=== PATIENT | male | born 1945 | race Caucasian/White ===

== ENCOUNTER → 2016-03-31 | Outpatient (CLI) | payer MEDICARE ==
--- NOTE | 2016-04-01 08:26 | XR ---
Cervical spine HISTORY: Neck pain 5 views of the cervical spine No comparisons Surgical clips present at the level of the thoracic inlet on the right. Multilevel facet arthropathy changes present. There is no significant foraminal encroachment. Anterolisthesis grade 1 C3-4, C4-5, there is multilevel spondylosis, loss of disc height present at C5-6, C6-7. Prevertebral soft tissues are normal. IMPRESSION: Degenerative disc disease and facet arthropathy.
== END | disposition home or self-care (01) ==
LOC: RADXRYALE 10:53
PROVIDERS: ATTEND Nurse Practitioner Family
DX: M50.30 Other cervical disc degeneration, unspecified cervical region (principal); M46.92 Unspecified inflammatory spondylopathy, cervical region
CPT/HCPCS: 72050

== ENCOUNTER → 2016-04-17 | Outpatient (CLI) | payer MEDICARE ==
--- NOTE | 2016-04-17 14:59 | MR ---
EXAMINATION TYPE: MR cervical spine wo con DATE OF EXAM ORDERED: 04/17/2016 2:01 PM HISTORY: M542 cervicalgia. TECHNOLOGIST HISTORY AT TIME OF EXAM: Cervicalgia COMPARISON: None. TECHNIQUE: Multiplanar, multiecho imaging of the cervical spine was obtained without contrast on a 1 .5 fadi magnet. FINDINGS: Prevertebral soft tissues are normal. Vertebral body height and alignment are maintained. Atlantoaxial relationships are normal. There is a normal craniocervical junction. Cord signal is normal. At C2-C3, no definite abnormality is seen. At C3-C4, there is a diffuse disc displacement. There is some right-sided intervertebral foraminal na rrowing. There is mild facet arthropathy. The uncovertebral joints are normal. At C4-C5, the intervertebral foramina are well maintained. There is a mild, diffuse disc displacement . There is mild hypertrophic spondylosis present anteriorly. There is mild degenerative changes in th e facets. The uncovertebral joints are unremarkable. At C5-C6, there is mild disc space loss. There is a diffuse disc displacement. There is mild, right-s ided intervertebral foraminal narrowing. There is some mild facet arthropathy. The uncovertebral join ts are normal. At C6-C7, there is disc space loss. There is a small, broad-based disc protrusion posteriorly effacin g the thecal sac without cord contact. The intervertebral foramina are well maintained. At C7-T1, no definite abnormality is seen. IMPRESSION: 1. DEGENERATIVE DISC DISEASE EXTENDING FROM C3-4 THROUGH TO C5-6. 2. SMALL, BROAD-BASED DISC PROTRUSION, C6-7, DEFORMING THE THECAL SAC WITHOUT CORD CONTACT. 3. MULTILEVEL INTERVERTEBRAL FORAMINAL NARROWING.
== END | disposition home or self-care (01) ==
LOC: RADMRIMAIN 13:09
PROVIDERS: ATTEND Nurse Practitioner
DX: M99.71 Connective tissue and disc stenosis of intervertebral foramina of cervical region (principal); M50.223 Other cervical disc displacement at C6-C7 level; M50.31 Other cervical disc degeneration, high cervical region
CPT/HCPCS: 72141

== ENCOUNTER → 2016-12-17 | Outpatient (CLI) | payer MEDICARE ==
--- NOTE | 2016-12-17 12:26 | ECHOS ---
STRESS ECHOCARDIOGRAM DATE OF SERVICE: 12/17/16 INDICATION: Chest pain. MEDICATIONS:: Dulera, Omeprazole BASELINE HEART RATE: 68 BASELINE BLOOD PRESSURE: 128/65 MAXIMUM HEART RATE: 153 MAXIMUM BLOOD PRESSURE: 201/80 85% MPHR: 126 100% MPHR: 148 METS: 8.5 mets MAXIMUM STAGE REACHED: III TOTAL EXERCISE TIME: 7 minutes. RESULTS: Baseline EKG shows sinus rhythm, normal axis, normal intervals, with poor R-wave progression. Patient exercised on Varun protocol for a total of 7 minutes achieving 8 METS. 100% of predicted maximal heart rate without chest pain or diagnostic ST-segment depression. Baseline echo shows normal left ventricular size, wall motion and systolic function. Post exercise there is normal hyperdynamic response of all segments of myocardium noted. CONCLUSIONS: 1. Average exercise tolerance. 2. Negative stress test by EKG criteria. 3. Negative stress echo. ANGIE / DESIREE: [id number] /
== END | disposition home or self-care (01) ==
LOC: RADNMMAIN 09:29
PROVIDERS: ATTEND Nurse Practitioner
DX: R07.89 Other chest pain (principal)
CPT/HCPCS: 93017; 93350

== ENCOUNTER 2020-02-03 16:25 | Emergency (ER) | payer MEDICARE ==
[2020-02-03 16:36] VITALS: RESP 18; TEMP 98
--- NOTE | 2020-02-03 17:46 | ED ---
General Adult HPI - General Chief complaint: Chest Pain Stated complaint: Chest tightness, +Covid Time Seen by Provider: 02/03/20 16:51 Source: patient Mode of arrival: ambulatory Limitations: no limitations - History of Present Illness Initial comments: Dictation was produced using [employer] dictation software. please excuse any grammatical, word or spelling errors. This patient was cared for during a federal and state declared state of emergency secondary to Covid 19 Chief Complaint: 6-year-old male presents with chest pain History of Present Illness: 74-year-old male presents today with chest pain. Patient states is worse when he coughs and takes a deep breath. Patient was diagnosed: Approximately 11 days ago. He denies any shortness of breath. He does have a cough as productive of white sputum. Reports he has a history of COPD and sees a brownfield redevelopment specialist. Patient denies any constitutional symptoms or fevers. The ROS documented in this emergency department record has been reviewed and confirmed by me. Those systems with pertinent positive or negative responses have been documented in the HPI. All other systems are other negative and/or noncontributory. PHYSICAL EXAM: General Impression: Alert and oriented x3, not in acute distress HEENT: Normocephalic atraumatic, extra-ocular movements intact, pupils equal and reactive to light bilaterally, mucous membranes moist. Cardiovascular: Heart regular rate and rhythm Chest: Able to complete full sentences, no retractions, no tachypnea Abdomen: abdomen soft, non-tender, non-distended, no organomegaly Musculoskeletal: Pulses present and equal in all extremities, no peripheral edema Motor: no focal deficits noted Neurological: CN II-XII grossly intact, no focal motor or sensory deficits noted Skin: Intact with no visualized rashes Psych: Normal affect and mood ED course: 74-year-old male who is Covid positive presents today with chest pain. His pain is atypical. As upon arrival are within acceptable limits. Patient hypoxic or tachycardic. Bedside he is well-appearing. Laboratory evaluation obtained. CBC is unremarkable. Coag panel is negative. D-dimer slightly elevated 0.89. Metabolic panel is unremarkable. CRP is 62.7. Chest x-ray shows peripheral pulmonary interstitial infiltrates concerning for fibrosis versus pneumonia. This point clinical presentation consistent with: 19. He is reevaluated at bedside approximately 6:50 PM and found to be in stable medical condition. He is not showing signs of respiratory distress. Patient clear for discharge is given Coumadin 19 precautions. Patient is agreeable with disposition. Return parameters discussed. EKG interpretation: Ventricular rate 70, sinus rhythm,. Interval to 26, QRS 80, QTC 429. No OK prolongation, no QTC prolongation, no ST or T-wave changes noted. No old EKG for comparison. Overall, this EKG is unremarkable. Repeat EKG was performed shortly after showed no dynamic changes. Ventricular rate 55,. Interval to 22, QRS 82, QTc 380. - Related Data Home Medications Medication Instructions Recorded Confirmed Albuterol Sulfate [Proair Hfa] 1 puff INHALATION DIRECTED PRN 02/06/16 02/06/16 Mometasone/Formoterol [Dulera 100 2 puff INHALATION BID 02/06/16 02/06/16 Mcg/5 Mcg Inhaler] Multivitamins, Thera [Multivitamin] 1 tab PO DAILY 02/06/16 02/06/16 [place]-3 Fatty Acids/Fish Oil [Fish 1 cap PO DAILY 02/06/16 02/06/16 Oil 1,000 mg Softgel] Allergies Allergy/AdvReac Type Severity Reaction Status Date / Time Penicillins Allergy Unknown Verified 02/03/20 16:33 Review of Systems ROS Statement: Those systems with pertinent positive or pertinent negative responses have been documented in the HPI. ROS Other: All systems not noted in ROS Statement are negative. Past Medical History Past Medical History: COPD Additional Past Medical History / Comment(s): SOB. PERIODIC IRREGULAR HEARTBEAT. History of Any Multi-Drug Resistant Organisms: None Reported Past Surgical History: Appendectomy, Cholecystectomy Additional Past Surgical History / Comment(s): UPPER RIGHT LOBECTOMY (BLEBS) 1979. BILATERAL CATARACTS WITH LENS Past Anesthesia/Blood Transfusion Reactions: No Reported Reaction Past Psychological History: No Psychological Hx Reported Smoking Status: Former smoker Past Alcohol Use History: None Reported Past Drug Use History: None Reported General Exam Limitations: no limitations Course Vital Signs 02/03/20 02/03/20 02/03/20 16:33 17:25 17:31 Temperature 98 F Pulse Rate 79 Pulse Rate [ 72 Life Skills Coordinator Volunteer ] Respiratory 18 18 Rate Blood Pressure 108/67 O2 Sat by Pulse 98 Oximetry 02/03/20 18:14 Temperature Pulse Rate 68 Pulse Rate [ Life Skills Coordinator Volunteer ] Respiratory 18 Rate Blood Pressure 101/66 O2 Sat by Pulse 95 Oximetry Medical Decision Making - Lab Data Result diagrams: 02/03/20 17:06 02/03/20 17:06 Lab Results 02/03/20 02/03/20 02/03/20 Range/Units 17:06 17:06 17:06 WBC 10.2 (3.8-10.6) k/uL RBC 5.41 (4.30-5.90) m/uL Hgb 16.9 (13.0-17.5) gm/dL Hct 49.7 (39.0-53.0) % MCV 91.9 (80.0-100.0) fL MCH 31.2 (25.0-35.0) pg MCHC 34.0 (31.0-37.0) g/dL RDW 12.4 (11.5-15.5) % Plt Count 182 (150-450) k/uL MPV 8.1 Neutrophils % 83 % Lymphocytes % 11 % Monocytes % 4 % Eosinophils % 1 % Basophils % 2 % Neutrophils # 8.4 H (1.3-7.7) k/uL Lymphocytes # 1.1 (1.0-4.8) k/uL Monocytes # 0.4 (0-1.0) k/uL Eosinophils # 0.1 (0-0.7) k/uL Basophils # 0.2 (0-0.2) k/uL PT 10.0 (9.0-12.0) sec INR 1.0 (<1.2) APTT 23.1 (22.0-30.0) sec D-Dimer 0.89 H (<0.60) mg/L FEU Sodium 136 L (137-145) mmol/L Potassium 4.1 (3.5-5.1) mmol/L Chloride 101 (98-107) mmol/L Carbon Dioxide 27 (22-30) mmol/L Anion Gap 8 mmol/L BUN 23 H (9-20) mg/dL Creatinine 1.04 (0.66-1.25) mg/dL Est GFR (CKD-EPI)AfAm 81 (>60 ml/min/1.73 sqM) Est GFR (CKD-EPI)NonAf 70 (>60 ml/min/1.73 sqM) Glucose 106 H (74-99) mg/dL Plasma Lactic Acid Jaime (0.7-2.0) mmol/L Calcium 8.6 (8.4-10.2) mg/dL Magnesium 2.3 (1.6-2.3) mg/dL Total Bilirubin 0.8 (0.2-1.3) mg/dL AST 33 (17-59) U/L ALT 42 (4-49) U/L Alkaline Phosphatase 74 (38-126) U/L Lactate Dehydrogenase 592 (313-618) U/L C-Reactive Protein 62.7 H (<10.0) mg/L Total Protein 6.7 (6.3-8.2) g/dL Albumin 3.5 (3.5-5.0) g/dL 02/03/20 Range/Units 17:06 WBC (3.8-10.6) k/uL RBC (4.30-5.90) m/uL Hgb (13.0-17.5) gm/dL Hct (39.0-53.0) % MCV (80.0-100.0) fL MCH (25.0-35.0) pg MCHC (31.0-37.0) g/dL RDW (11.5-15.5) % Plt Count (150-450) k/uL MPV Neutrophils % % Lymphocytes % % Monocytes % % Eosinophils % % Basophils % % Neutrophils # (1.3-7.7) k/uL Lymphocytes # (1.0-4.8) k/uL Monocytes # (0-1.0) k/uL Eosinophils # (0-0.7) k/uL Basophils # (0-0.2) k/uL PT (9.0-12.0) sec INR (<1.2) APTT (22.0-30.0) sec D-Dimer (<0.60) mg/L FEU Sodium (137-145) mmol/L Potassium (3.5-5.1) mmol/L Chloride (98-107) mmol/L Carbon Dioxide (22-30) mmol/L Anion Gap mmol/L BUN (9-20) mg/dL Creatinine (0.66-1.25) mg/dL Est GFR (CKD-EPI)AfAm (>60 ml/min/1.73 sqM) Est GFR (CKD-EPI)NonAf (>60 ml/min/1.73 sqM) Glucose (74-99) mg/dL Plasma Lactic Acid Jaime 0.9 (0.7-2.0) mmol/L Calcium (8.4-10.2) mg/dL Magnesium (1.6-2.3) mg/dL Total Bilirubin (0.2-1.3) mg/dL AST (17-59) U/L ALT (4-49) U/L Alkaline Phosphatase (38-126) U/L Lactate Dehydrogenase (313-618) U/L C-Reactive Protein (<10.0) mg/L Total Protein (6.3-8.2) g/dL Albumin (3.5-5.0) g/dL Disposition Clinical Impression: Pleurisy, COVID-19 Disposition: HOME SELF-CARE Condition: Good Instructions (If sedation given, give patient instructions): Chest Pain (ED), Viral Pneumonia (ED) Additional Instructions: Today you were evaluated for symptoms consistent with upper respiratory infection. There is concern that perhaps your symptomatology may represent Covid 19. Your are stable for discharge, however it is instructed to to seek immediate medical attention especially if you develop worsening symptoms especially respiratory distress. In the meantime please remain in quarantine for 14 days. For any other questions please contact [facility] for here in emergency department or [facility] at [phone] Is patient prescribed a controlled substance at d/c from ED?: No Referrals: Leonor Alexander DO [Primary Care Provider] - 1-2 days Time of Disposition: 19:19
[2020-02-03 17:48] LABS: Basophils # (A) 0.2 k/uL (0-0.2); Basophils % (A) 2 %; Eosinophils # (A) 0.1 k/uL (0-0.7); Eosinophils % (A) 1 %; HCT 49.7 % (39.0-53.0); HGB 16.9 gm/dL (13.0-17.5); Lymphocytes # (A) 1.1 k/uL (1.0-4.8); Lymphocytes % (A) 11 %; MCH 31.2 pg (25.0-35.0); MCV 91.9 fL (80.0-100.0); Mean Platelet Volume 8.1; Monocytes # (A) 0.4 k/uL (0-1.0); Monocytes % (A) 4 %; Neutrophils # (A) 8.4 k/uL (1.3-7.7); Neutrophils % (A) 83 %; Platelet Count 182 k/uL (150-450); RBC 5.41 m/uL (4.30-5.90); RDW 12.4 % (11.5-15.5); WBC 10.2 k/uL (3.8-10.6)
--- NOTE | 2020-02-03 17:53 | XR ---
EXAMINATION TYPE: XR chest 1V portable DATE OF EXAM: 02/03/2020 COMPARISON: 08/10/2017 HISTORY: Short of breath TECHNIQUE: FINDINGS: There is coarse interstitial density in the lungs. Heart size is normal. There is no defini te pleural effusion. There are no hilar masses. There is mild pleural thickening at the right lung ap ex. 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 There is increasing peripheral pulmonary interstitial infiltrates that is more consistent with fibrosis. Supe rimposed pneumonia also possible.
[2020-02-03 17:57] LABS: Albumin 3.5 g/dL (3.5-5.0); C Reactive Protein 62.7 mg/L (<10.0); Calcium 8.6 mg/dL (8.4-10.2); Magnesium 2.3 mg/dL (1.6-2.3); Potassium 4.1 mmol/L (3.5-5.1); Total Bilirubin 0.8 mg/dL (0.2-1.3); Total Protein 6.7 g/dL (6.3-8.2)
[2020-02-03] MEDS ORDERED: DEXAMETHASONE SOD PHOSPHATE 10 MG/ML 1 ML VIAL IV STA (18:02)
[2020-02-03 18:03] LABS: Partial Thromboplastin Time 23.1 sec (22.0-30.0)
[2020-02-03 18:44] LABS: D-Dimer 0.89 mg/L FEU (<0.60)
[2020-02-03 19:51] VITALS: BP 111/73; PULSE 71
[2020-02-03 23:27] LABS: Ferritin 1712.8 ng/mL (22.0-322.0)
== END 2020-02-03 19:51 | disposition home or self-care (01) ==
LOC: EC 16:25
DX: U07.1 COVID-19 (principal); R09.1 Pleurisy; R91.8 Other nonspecific abnormal finding of lung field; J44.9 Chronic obstructive pulmonary disease, unspecified; Z79.51 Long term (current) use of inhaled steroids; Z88.0 Allergy status to penicillin; Z87.891 Personal history of nicotine dependence
CPT/HCPCS: 36415; 93005; 85379; 80053; 82728; 83605; 83615; 83735; 85025; 85610; 85730; 86140; 87040; 84145; 71045; 99285; 96374; J1100

== ENCOUNTER 2024-01-13 20:31 | Emergency (ER) | payer MEDICARE ==
[2024-01-13 20:34] VITALS: TEMP 97.8
--- NOTE | 2024-01-13 21:09 | ED ---
Recheck HPI - General Chief Complaint: Recheck/Abnormal Lab/Rx Stated Complaint: abn labs Time Seen by Provider: 01/13/24 20:50 Source: patient, RN notes reviewed Mode of arrival: wheelchair Limitations: no limitations - History of Present Illness Initial Comments: 78-year-old male presenting to the ER with chief complaint of hypertension. Patient states he has been checking his blood pressure at home and it has been in the 200s over 110s. Patient also states he feels like his "joints in his hands are stiff" and he is "hot behind the eyes". States he is concerned because he accidentally bumped his head while walking towards a beam 1 week ago and has had lightheadedness since. Denies chest pain, vision changes, fever, chills, cough. Denies history of hypertension. Denies blood thinners. History of COPD, denies other health conditions. - Related Data Home Medications Medication Instructions Recorded Confirmed Albuterol Sulfate [Proair Hfa] 1 puff INHALATION DIRECTED PRN 02/06/16 02/06/16 Mometasone/Formoterol [Dulera 100 2 puff INHALATION BID 02/06/16 02/06/16 Mcg/5 Mcg Inhaler] Multivitamins, Thera [Multivitamin] 1 tab PO DAILY 02/06/16 02/06/16 [place]-3 Fatty Acids/Fish Oil [Fish 1 cap PO DAILY 02/06/16 02/06/16 Oil 1,000 mg Softgel] Allergies Allergy/AdvReac Type Severity Reaction Status Date / Time Penicillins Allergy Unknown Verified 01/13/24 20:34 Review of Systems ROS Statement: Those systems with pertinent positive or pertinent negative responses have been documented in the HPI. ROS Other: All systems not noted in ROS Statement are negative. Past Medical History Past Medical History: COPD Additional Past Medical History / Comment(s): SOB. PERIODIC IRREGULAR HEARTBEAT. History of Any Multi-Drug Resistant Organisms: None Reported Past Surgical History: Appendectomy, Cholecystectomy Additional Past Surgical History / Comment(s): UPPER RIGHT LOBECTOMY (BLEBS) 1979. BILATERAL CATARACTS WITH LENS Past Anesthesia/Blood Transfusion Reactions: No Reported Reaction Past Psychological History: No Psychological Hx Reported Smoking Status: Former smoker Past Alcohol Use History: None Reported Past Drug Use History: None Reported General Exam Limitations: no limitations General appearance: alert, in no apparent distress Head exam: Present: atraumatic, normocephalic, normal inspection Eye exam: Present: normal appearance, PERRL, EOMI. Absent: scleral icterus, conjunctival injection, periorbital swelling ENT exam: Present: normal exam, mucous membranes moist Respiratory exam: Present: normal lung sounds bilaterally. Absent: respiratory distress, wheezes, rales, rhonchi, stridor Cardiovascular Exam: Present: regular rate, normal rhythm, normal heart sounds. Absent: systolic murmur, diastolic murmur, rubs, gallop, clicks GI/Abdominal exam: Present: soft, normal bowel sounds. Absent: distended, tenderness, guarding, rebound, rigid Neurological exam: Present: alert, oriented X3, CN II-XII intact Psychiatric exam: Present: normal affect, normal mood Skin exam: Present: warm, dry, intact, normal color. Absent: rash Course Vital Signs 01/13/24 01/13/24 01/13/24 20:33 21:21 22:18 Temperature 97.8 F Pulse Rate 71 71 72 Respiratory 18 16 16 Rate Blood Pressure 178/83 155/82 152/72 O2 Sat by Pulse 97 Oximetry 01/13/24 23:41 Temperature Pulse Rate 67 Respiratory 16 Rate Blood Pressure 158/81 O2 Sat by Pulse 96 Oximetry Medical Decision Making - Medical Decision Making Was pt. sent in by a medical professional or institution ([facility], MANAGER BATTER[employer], urgent care, hospital, or fdc...) When possible be specific @ -No Did you speak to anyone other than the patient for history (EMS, parent, family, police, friend...)? What history was obtained from this source @ -No Did you review nursing and triage notes (agree or disagree)? Why? @ -I reviewed and agree with nursing and triage notes Were old charts reviewed (outside hosp., previous admission, EMS record, old EKG, old radiological studies, urgent care reports/EKG's, fdc records)? Report findings @ -No old charts were reviewed Differential Diagnosis (chest pain, altered mental status, abdominal pain women, abdominal pain men, vaginal bleeding, weakness, fever, dyspnea, syncope, headache, dizziness, GI bleed, back pain, seizure, CVA, palpatations, mental health, musculoskeletal)? @ -Hypertension, ACS, intracranial bleed, concussion, viral URI EKG interpreted by me (3pts min.). @ -As above X-rays interpreted by me (1pt min.). @ -Chest x-ray reveals no acute process CT interpreted by me (1pt min.). @ -CT brain reveals no acute process U/S interpreted by me (1pt. min.). @ -None done What testing was considered but not performed or refused? (CT, X-rays, U/S, labs)? Why? @ -None What meds were considered but not given or refused? Why? @ -None Did you discuss the management of the patient with other professionals (professionals i.e. , PA, MANAGER BATTERY, lab, RT, psych nurse, director of social work, abalone fisherman, teacher, driver license reviewing officer, child welfare caseworker)? Give summary @ -No Was smoking cessation discussed for >3mins.? @ -No Was critical care preformed (if so, how long)? @ -No Were there social determinants of health that impacted care today? How? (Homelessness, low income, unemployed, alcoholism, drug addiction, transportation, low edu. Level, literacy, decrease access to med. care, snf, rehab)? @ -No Was there de-escalation of care discussed even if they declined (Discuss DNR or withdrawal of care, Hospice)? DNR status @ -No What co-morbidities impacted this encounter? (DM, HTN, Smoking, COPD, CAD, Cancer, CVA, ARF, Chemo, Hep., AIDS, mental health diagnosis, sleep apnea, morbid obesity)? @ -None Was patient admitted / discharged? Hospital course, mention meds given and route, prescriptions, significant lab abnormalities, going to OR and other pertinent info. @ -Discharge. This is a 78-year-old male presenting for hypertension. Patient reports blood pressure has been elevated at home monitoring. Patient has never been diagnosed with hypertension, does not take antihypertensive medications. No cardiopulmonary alarm symptoms, however patient reports he did hit his head 1 week ago and has had lightheadedness since then. Initial blood pressure 178/83, heart rate 71 bpm, satting 97% on room air. Lab work including CBC, CMP, troponin unremarkable. EKG reveals normal sinus rhythm with no ST changes. Chest x-ray reveals no acute process. Cepheid negative. CT brain reveals no acute process. Upon reevaluation, blood pressure decreases to 152/72. Negative results discussed with patient. Advise close follow-up with PCP for reevaluation. Strict cardiopulmonary alarm symptoms discussed with patient and he is agreeable to plan. Case was discussed with my ED attending Dr. Guerra. Patient discharged in stable condition. Undiagnosed new problem with uncertain prognosis? @ -No Drug Therapy requiring intensive monitoring for toxicity (Heparin, Nitro, Insulin, Cardizem)? @ -No Were any procedures done? @ -No Diagnosis/symptom? @ -Hypertension Acute, or Chronic, or Acute on Chronic? @ -Acute Uncomplicated (without systemic symptoms) or Complicated (systemic symptoms)? @ -Uncomplicated Side effects of treatment? @ -No Exacerbation, Progression, or Severe Exacerbation? @ -No Poses a threat to life or bodily function? How? (Chest pain, [place], [place], pneumonia, PE, COPD, DKA, ARF, appy, cholecystitis, CVA, Diverticulitis, Homicidal, Suicidal, threat to staff... and all critical care pts) @ -Not at this time - Lab Data Result diagrams: 01/13/24 21:21 01/13/24 21:21 Lab Results 01/13/24 01/13/24 01/13/24 Range/Units 21:21 21:21 21:21 WBC 8.5 (3.8-10.6) k/uL RBC 4.86 (4.30-5.90) m/uL Hgb 15.4 (13.0-17.5) gm/dL Hct 47.0 (39.0-53.0) % MCV 96.6 (80.0-100.0) fL MCH 31.6 (25.0-35.0) pg MCHC 32.7 (31.0-37.0) g/dL RDW 12.9 (11.5-15.5) % Plt Count 209 (150-450) k/uL MPV 8.6 Neutrophils % 60 % Lymphocytes % 28 % Monocytes % 7 % Eosinophils % 2 % Basophils % 1 % Neutrophils # 5.1 (1.3-7.7) k/uL Lymphocytes # 2.4 (1.0-4.8) k/uL Monocytes # 0.6 (0-1.0) k/uL Eosinophils # 0.2 (0-0.7) k/uL Basophils # 0.1 (0-0.2) k/uL Sodium 139 (137-145) mmol/L Potassium 4.2 (3.5-5.1) mmol/L Chloride 106 (98-107) mmol/L Carbon Dioxide 25 (22-30) mmol/L Anion Gap 8 mmol/L BUN 25 H (9-20) mg/dL Creatinine 0.92 (0.66-1.25) mg/dL Est GFR (CKD-EPI)AfAm >90 (>60 ml/min/1.73 sqM) Est GFR (CKD-EPI)NonAf 79 (>60 ml/min/1.73 sqM) Glucose 138 H (74-99) mg/dL Calcium 9.3 (8.4-10.2) mg/dL Total Bilirubin 0.5 (0.2-1.3) mg/dL AST 25 (17-59) U/L ALT 23 (4-49) U/L Alkaline Phosphatase 59 (38-126) U/L Troponin I (0.000-0.034) ng/mL Total Protein 6.7 (6.3-8.2) g/dL Albumin 4.1 (3.5-5.0) g/dL Influenza Type A (PCR) Not Detected (Not Detectd) Influenza Type B (PCR) Not Detected (Not Detectd) RSV (PCR) Not Detected (Not Detectd) SARS-CoV-2 (PCR) Not Detected (Not Detectd) 01/13/24 Range/Units 21:21 WBC (3.8-10.6) k/uL RBC (4.30-5.90) m/uL Hgb (13.0-17.5) gm/dL Hct (39.0-53.0) % MCV (80.0-100.0) fL MCH (25.0-35.0) pg MCHC (31.0-37.0) g/dL RDW (11.5-15.5) % Plt Count (150-450) k/uL MPV Neutrophils % % Lymphocytes % % Monocytes % % Eosinophils % % Basophils % % Neutrophils # (1.3-7.7) k/uL Lymphocytes # (1.0-4.8) k/uL Monocytes # (0-1.0) k/uL Eosinophils # (0-0.7) k/uL Basophils # (0-0.2) k/uL Sodium (137-145) mmol/L Potassium (3.5-5.1) mmol/L Chloride (98-107) mmol/L Carbon Dioxide (22-30) mmol/L Anion Gap mmol/L BUN (9-20) mg/dL Creatinine (0.66-1.25) mg/dL Est GFR (CKD-EPI)AfAm (>60 ml/min/1.73 sqM) Est GFR (CKD-EPI)NonAf (>60 ml/min/1.73 sqM) Glucose (74-99) mg/dL Calcium (8.4-10.2) mg/dL Total Bilirubin (0.2-1.3) mg/dL AST (17-59) U/L ALT (4-49) U/L Alkaline Phosphatase (38-126) U/L Troponin I <0.012 (0.000-0.034) ng/mL Total Protein (6.3-8.2) g/dL Albumin (3.5-5.0) g/dL Influenza Type A (PCR) (Not Detectd) Influenza Type B (PCR) (Not Detectd) RSV (PCR) (Not Detectd) SARS-CoV-2 (PCR) (Not Detectd) - EKG Data -: EKG Interpreted by Me EKG Comments: EKG reveals normal sinus rhythm with first-degree AV block. Ventricular rate 73 bpm, NM interval 263, QRS duration 86, QT/QTc 394/420 Disposition Clinical Impression: Hypertension Disposition: HOME SELF-CARE Condition: Stable Instructions (If sedation given, give patient instructions): Hypertension in the Older Adult (ED) Additional Instructions: Follow-up with PCP as discussed. Please return to the Emergency Department if symptoms worsen or any other concerns. Is patient prescribed a controlled substance at d/c from ED?: No Referrals: Leonor Alexander DO [REFERRING] - 1-2 days Time of Disposition: 23:19
[2024-01-13 21:22] VITALS: RESP 16
--- NOTE | 2024-01-13 21:37 | CT ---
EXAMINATION TYPE: CT brain wo con DATE OF EXAM: 01/13/2024 9:33 PM COMPARISON: None. CLINICAL INDICATION: Male, 78 years old with history of head injury, lightheadedness, Patient states HTN. Denies chest pain TECHNIQUE: CT of the brain is performed utilizing 3 mm thick sections through the posterior fossa and 3 mm thick sections through the remaining calvarium. Study is performed within 24 hours of arrival to the hospital. Contrast used: mL of , (none if empty) Oral contrast used: (none if empty) CT DLP: 1154.5 mGycm, Automated exposure control for dose reduction was used. FINDINGS: No abnormal hyperdensity is present to suggest an acute intracranial hemorrhage. No mass lesion is evident. No acute infarcts are evident. Ventricles and sulci are appropriate for the patient age. Paranasal sinuses and mastoid air cells within the [id number] are clear. IMPRESSION: 1. No acute intracranial process. Follow up MRI can be performed as clinically indicated. [facility], , 01/13/2024 9:35 PM
--- NOTE | 2024-01-13 21:40 | XR ---
EXAMINATION TYPE: XR chest 2V DATE OF EXAM: 01/13/2024 9:35 PM COMPARISON: 02/03/2020 CLINICAL INDICATION: Male, 78 years old with history of hypertension, TECHNIQUE: XR chest 2V view(s) obtained. FINDINGS: The heart size is normal. The pulmonary vasculature is normal. The lungs are clear. Stable right apical thickening is present IMPRESSION: 1. No acute pulmonary process. [facility], , 01/13/2024 9:38 PM
[2024-01-13 21:48] LABS: Basophils # (A) 0.1 k/uL (0-0.2); Basophils % (A) 1 %; Eosinophils # (A) 0.2 k/uL (0-0.7); Eosinophils % (A) 2 %; HGB 15.4 gm/dL (13.0-17.5); Lymphocytes # (A) 2.4 k/uL (1.0-4.8); Lymphocytes % (A) 28 %; MCH 31.6 pg (25.0-35.0); MCHC 32.7 g/dL (31.0-37.0); MCV 96.6 fL (80.0-100.0); Mean Platelet Volume 8.6; Monocytes # (A) 0.6 k/uL (0-1.0); Monocytes % (A) 7 %; Neutrophils # (A) 5.1 k/uL (1.3-7.7); Neutrophils % (A) 60 %; Platelet Count 209 k/uL (150-450); RBC 4.86 m/uL (4.30-5.90); RDW 12.9 % (11.5-15.5); WBC 8.5 k/uL (3.8-10.6)
[2024-01-13 22:18] LABS: ALT 23 U/L (4-49); AST 25 U/L (17-59); African American GFR (CKD) >90 (>60 ml/min/1.73 sqM); Albumin 4.1 g/dL (3.5-5.0); Alkaline Phosphatase 59 U/L (38-126); Anion Gap 8 mmol/L; Blood Urea Nitrogen 25 mg/dL (9-20); Calcium 9.3 mg/dL (8.4-10.2); Carbon Dioxide 25 mmol/L (22-30); Chloride 106 mmol/L (98-107); Glucose 138 mg/dL (74-99); Non-African American GFR(CKD) 79 (>60 ml/min/1.73 sqM); Potassium 4.2 mmol/L (3.5-5.1); Sodium 139 mmol/L (137-145); Total Bilirubin 0.5 mg/dL (0.2-1.3); Total Protein 6.7 g/dL (6.3-8.2)
[2024-01-13 23:42] VITALS: BP 158/81; PULSE 67
== END 2024-01-13 23:42 | disposition home or self-care (01) ==
LOC: EC 20:31
DX: I10 Essential (primary) hypertension (principal); I44.0 Atrioventricular block, first degree; Z87.891 Personal history of nicotine dependence; Z88.0 Allergy status to penicillin
CPT/HCPCS: 36415; 70450; 71046; 80053; 84484; 85025; 87636; 93005; 99284